=== PATIENT | male | born 1950 ===

== ENCOUNTER 2017-11-25 13:00 | Outpatient (RCR) | payer OTHER | END 2017-12-14 | disposition home or self-care (01) | LOC: PTY 13:00 | PROVIDERS: ATTEND Internal Medicine | DX: M54.2 Cervicalgia (principal) ==

== ENCOUNTER 2017-12-15 07:55 | Outpatient (RCR) | payer OTHER | END 2018-01-14 | disposition home or self-care (01) | LOC: PTY 07:55 | PROVIDERS: ATTEND Internal Medicine | DX: M54.2 Cervicalgia (principal) ==